=== PATIENT | female | born 1960 | race Caucasian/White ===

== ENCOUNTER 2024-11-01 00:29 | Day surgery (SDC) | payer OTHER, SELFPAY ==
[2024-10-13 12:52] VITALS: BMI 38.4
--- NOTE | 2024-11-01 08:38 | P.PNAN_ITS ---
Anes - Initial Pre Proc Eval Procedure: Operation Date: 11/01/24 09:30 Proposed Procedures p Colonoscopy - Raleigh Zacarias MD Date/Time: 11/01/24 08:38 Surgeon: Raleigh Zacarias MD Pre Op Diagnosis: Personal hx. colon polyps Patient Data Age: 64 Gender: F Height: 1.7 m Weight: 111.2 kg Allergies Allergy/AdvReac Type Severity Reaction Status Date / Time shellfish derived Allergy Severe Swelling / Verified 11/01/24 08:27 TINGLING amlodipine AdvReac Severe Swelling Verified 11/01/24 08:27 Contrast Media Allergy Severe Swelling / Uncoded 11/01/24 08:27 TING[place]ING Home Medications ?Medication ?Instructions ?Recorded ?Confirmed ?Type cholecalciferol (vitamin D3) 125 125 mcg PO DAILY 08/07/22 11/01/24 History mcg (5,000 unit) capsule conjugated estrogens 0.625 mg/gram 0.625 mg vaginal 2XW #30 grams 08/07/22 11/01/24 Rx vaginal cream (Premarin) spironolactone 25 mg tablet 12.5 mg PO DAILY 03/25/23 11/01/24 History atorvastatin 20 mg tablet 20 mg PO QHS #90 tabs 12/21/23 11/01/24 Rx losartan 100 1 tablet PO DAILY #90 tabs 12/21/23 11/01/24 Rx mg-hydrochlorothiazide 12.5 mg tablet scopolamine base 1 mg over 3 days 1 patch transdermal Q72H PRN 12/21/23 10/13/24 Rx transdermal patch motion sickness #10 ea multivitamin 1 tablet PO DAILY 10/13/24 11/01/24 History Patient hx anesthesia problems: none Family hx anesthesia problems: none Results Review: All pre-operative results and documents have been reviewed as part of the pre- operative evaluation. [facility] Past Medical History Medical History Pre-diabetes CKD (chronic kidney disease), stage I Uterine fibroid IBS (irritable bowel syndrome) SCOTT (obstructive sleep apnea) Hypertension High cholesterol History of colon polyps Surgical History Surgical History History of cataract removal with insertion of prosthetic lens Right eye - 08/05/23 Left eye - 08/12/[address] Richard Cruz S/P [facility] [place] History of colonoscopy 2012 History of right knee surgery right meniscus repair 05/13/2013-Dr Landry right meniscus repair 01/01/2007-Dr Li Family History Family History Father Cerebrovascular accident Heart disease Hypertension Arthritis Kidney disease Mother Diabetes mellitus Hypertension Heart disease Cardiomyopathy Social History Social History Smoking status: Never smoker Alcohol intake: current Drinks per week: 4 Alcohol use details: WINE/BEER Substance use: never Substance use type: does not use Living arrangements: with family Additional living arrangements comments: [place] Occupation/Education: retired Gender identity (if verbalized by the patient): Female Spiritual care concerns: No Agree to blood products: Yes Anes - Eval Final PreProcedure Day of Procedure 11/01/24 08:38 Patient weight: obese Heart: regular rate and rhythm Lungs: clear to auscultation Airway: Mallampati scale class II Neurological: alert and oriented Last oral intake: >/= 8 hours ASA classification: III Emergent: no Anesthetic plan: proceed Anesthesia type and monitoring: general GIVS and standard monitoring Results Review: All pre-operative results and documents have been reviewed as part of the pre- operative evaluation. Informed Consent: The patient's anesthetic plan and its attendant risks and benefits were discussed with the patient/family/POA. Questions were solicited and answers provided to the satisfaction of the patient/family/POA.
[2024-11-01] MEDS: LACTATED RINGERS 1,000 ML 150 ML IV CONT (08:41)
[2024-11-01 08:42] VITALS: BP 127/69; PULSE 55; RESP 14; TEMP 36.1; O2SAT 97; BMI 38.8
--- NOTE | 2024-11-01 08:44 | PM.HPGS ---
History of Present Illness History of Present Illness Consent: Risks, benefits, and alternatives have been discussed and questions answered. Patient agrees to proceed with procedure. Chief complaint: Personal hx. colon polyps Narrative: Margie Conner is a 64 year old female with colon polyp in 2018 Review of Systems Review of Systems: All systems reviewed & are unremarkable except as noted in HPI and below PMFSH Past Medical History Medical History (Updated 11/01/24 @ 08:48 by Raleigh Zacarias MD) Colon polyp Pre-diabetes CKD (chronic kidney disease), stage I Uterine fibroid IBS (irritable bowel syndrome) SCOTT (obstructive sleep apnea) Hypertension High cholesterol History of colon polyps Surgical History Surgical History History of cataract removal with insertion of prosthetic lens Right eye - 08/05/23 Left eye - 08/12/[address] Richard Cruz S[facility] History of colonoscopy 2012 History of right knee surgery right meniscus repair 05/13/2013-Dr Landry right meniscus repair 01/01/2007-Dr Li Family History Family History Father Cerebrovascular accident Heart disease Hypertension Arthritis Kidney disease Mother Diabetes mellitus Hypertension Heart disease Cardiomyopathy Social History Social History Smoking status: Never smoker Alcohol intake: current Drinks per week: 4 Alcohol use details: WINE/BEER Substance use: never Substance use type: does not use Living arrangements: with family Additional living arrangements comments: [place] Occupation/Education: retired Gender identity (if verbalized by the patient): Female Spiritual care concerns: No Agree to blood products: Yes Meds Home Medications and Allergies Home Medications ?Medication ?Instructions ?Recorded ?Confirmed ?Type cholecalciferol (vitamin D3) 125 125 mcg PO DAILY 08/07/22 11/01/24 History mcg (5,000 unit) capsule conjugated estrogens 0.625 mg/gram 0.625 mg vaginal 2XW #30 grams 08/07/22 11/01/24 Rx vaginal cream (Premarin) spironolactone 25 mg tablet 12.5 mg PO DAILY 03/25/23 11/01/24 History atorvastatin 20 mg tablet 20 mg PO QHS #90 tabs 12/21/23 11/01/24 Rx losartan 100 1 tablet PO DAILY #90 tabs 12/21/23 11/01/24 Rx mg-hydrochlorothiazide 12.5 mg tablet scopolamine base 1 mg over 3 days 1 patch transdermal Q72H PRN 12/21/23 10/13/24 Rx transdermal patch motion sickness #10 ea multivitamin 1 tablet PO DAILY 10/13/24 11/01/24 History Allergies Allergy/AdvReac Type Severity Reaction Status Date / Time shellfish derived Allergy Severe Swelling / Verified 11/01/24 08:27 [place] amlodipine AdvReac Severe Swelling Verified 11/01/24 08:27 Contrast Media Allergy Severe Swelling / Uncoded 11/01/24 08:27 [place] Exam Const: General: comfortable and no acute distress HENMT: Face/Nose/Sinus: Normal nares present Eyes: General: appearance normal, both eyes and all related structures Neck: Neck: no JVD Resp: Auscultation: clear to auscultation bilaterally Cardio: Rate: regular rate Rhythm: regular rhythm GI: Inspection: non-distended GI Palp: Yes Soft to palpation Skin: General skin exam: normal color Neuro: General: gait normal Speech: normal speech Extrem: General: normal to inspection Psych: Mental Status: mental status grossly normal Assessment and Plan Assessment and plan (1) Colon polyp: Code(s): K63.5 - Polyp of colon Status: Acute Assessment and Plan: colonoscopy
[2024-11-01 09:05] VITALS: BP 122/77; PULSE 60; RESP 18; O2SAT 99
[2024-11-01 09:15] VITALS: BP 113/53; PULSE 59; RESP 20; O2SAT 97
[2024-11-01 09:25] VITALS: BP 110/47; PULSE 63; RESP 20; O2SAT 97
== END 2024-11-01 09:35 | disposition home or self-care (01) ==
PROVIDERS: PCP Physician Assistant Medical; Visit Provider Internal Medicine Gastroenterology
PROC: 0DJD8ZZ Inspection of Lower Intestinal Tract, Via Natural or Artificial Opening Endoscopic (ICD-10-PCS; CPT 45378; principal; 2024-11-01 09:30)
DX: Z12.11 Encounter for screening for malignant neoplasm of colon (principal); D12.0 Benign neoplasm of cecum; D12.2 Benign neoplasm of ascending colon; E13.22 Other specified diabetes mellitus with diabetic chronic kidney disease; I12.9 Hypertensive chronic kidney disease with stage 1 through stage 4 chronic kidney disease, or unspecified chronic kidney disease; N18.1 Chronic kidney disease, stage 1; K58.9 Irritable bowel syndrome, unspecified; G47.33 Obstructive sleep apnea (adult) (pediatric); E78.00 Pure hypercholesterolemia, unspecified; E66.9 Obesity, unspecified; Z68.38 Body mass index [BMI] 38.0-38.9, adult; Z98.890 Other specified postprocedural states; Z82.49 Family history of ischemic heart disease and other diseases of the circulatory system
CPT/HCPCS: 45385; 88305; J2704; J7120